=== PATIENT | female | born 1985 | race Caucasian/White ===

== ENCOUNTER 2019-11-18 10:09 | Inpatient (IN) | payer OTHER ==
[~2019-11-18] VITALS: Ht 162.6 cm; Wt 86.4 kg
[2019-11-18] VITALS (17 sets, daily range): BP systolic 99–135; BP diastolic 71–88
[2019-11-18 10:41] LABS: BASOPHILS % (AUTO) 0.1 % (0-1); EOSINOPHILS % (AUTO) 0.1 % (0-6); HEMATOCRIT 42.4 % (35.0-45.0); HEMOGLOBIN 14.3 g/dl (12.0-16.0); LYMPHOCYTES # (AUTO) 1.5 X10'3 (1.1-4.8); LYMPHOCYTES % (AUTO) 5.6 % (21-51); MEAN CORPUSCULAR HEMOGLOBIN 30.2 PG (27.0-31.0); MEAN CORPUSCULAR HGB CONC 33.6 g/dL (33.0-36.5); MEAN CORPUSCULAR VOLUME 89.8 FL (78-98); MONOCYTES # (AUTO) 2.1 X10'3 (0-0.9); MONOCYTES % (AUTO) 7.6 % (2-12); NEUTROPHILS # (AUTO) 23.9 X10'3 (1.8-7.7); NEUTROPHILS % (AUTO) 86.6 % (42-75); PLATELET COUNT 433 X10'3 (140-440); RED BLOOD COUNT 4.72 X10'6 (4.20-5.60); RED CELL DISTRIBUTION WIDTH 12.1 % (11.5-14.5)
[2019-11-18 10:44] LABS: WHITE BLOOD COUNT 27.6 X10'3 (4.5-11.0)
[2019-11-18 10:53] LABS: CLARITY,URINE CLEAR (Clear); COLOR,URINE STRAW (Yellow); GLUCOSE, URINE NEGATIVE (Neg); KETONES,URINE NEGATIVE (Neg); LEUKOCYTE ESTERASE ,URINE NEGATIVE (Neg); NITRITES, URINE NEGATIVE (Neg); OCCULT BLOOD,URINE TRACE-INTACT (Neg); PH,URINE 6.5 (4.8-8.0); PROTEIN,URINE NEGATIVE (Neg); UROBILINOGEN,URINE 0.2 E.U/dL (0.2-1.0)
[2019-11-18 10:54] LABS: URINE HCG NEGATIVE (NEG)
[2019-11-18 10:57] LABS: ALANINE AMINOTRANSFERASE 35 U/L (12-78); ALBUMIN 4.5 G/DL (3.4-5.0); ALKALINE PHOSPHATASE 48 IU/L (46-116); ANION GAP 11 (8-16); ASPARTATE AMINO TRANSFERASE 14 U/L (10-37); BILIRUBIN,TOTAL 0.6 MG/DL (0.1-1.0); BLOOD UREA NITROGEN 6 MG/DL (7-18); BUN/CREATININE RATIO 7.7 (6.6-38.0); CALCIUM 9.6 MG/DL (8.5-10.1); CHLORIDE 101 MMOL/L (99-107); CREATININE 0.78 MG/DL (0.40-0.90); GLUCOSE 116 MG/DL (70-104); LIPASE 150 U/L (73-393); POTASSIUM 3.4 MMOL/L (3.5-5.1); SODIUM 139 MMOL/L (135-145); TOTAL CARBON DIOXIDE 27.2 MMOL/L (24-32); TOTAL PROTEIN 8.8 G/DL (6.4-8.2); eGFR 85 ML/MIN
[2019-11-18 11:02] LABS: UA COLLECTION TYPE CLN CATCH MIDSTREAM
[2019-11-18 11:03] LABS: BACTERIA,URINE FEW /HPF (Neg); RBC,URINE 0-2 /HPF (0-2); SQUAMOUS EPITHELIAL CELL,UR FEW /LPF (FEW); WBC,URINE 0-4 /HPF (0-4)
[2019-11-18] MEDS ORDERED: normal saline 1000ML IV soln IV ONE (11:10)
[2019-11-18] MEDS ORDERED: CefTRIAXone/D5W-Rocephin 1gm 50 ML IV ONE ×2 (11:10→11:40)
[2019-11-18] MEDS ORDERED: metroNIDAZOLE-Flagyl 500mg/NS 100 ML IV ONE (11:10)
[2019-11-18 11:13] LABS: TOTAL CELLS COUNTED 100
[2019-11-18 11:14] LABS: PLATELET ESTIMATE NORMAL; TOXIC VACUOLATION 1+
[2019-11-18] MEDS ORDERED: iohexol 300mg/ml 100ml inj. ONE (11:16)
[2019-11-18] MEDS ORDERED: CefTRIAXone inj 1,000 MG in normal saline 100ml IV soln 100 ML IV ONE (11:20)
[2019-11-18] MEDS ORDERED: potassium Cl 20 mEq SR tablet PO PRN (13:05)
[2019-11-18] MEDS ORDERED: bisacodyl 10mg suppository rectal RC PRN (13:05)
[2019-11-18] MEDS ORDERED: morphine 2 MG/ML inj. syringe IV PRN ×3 (13:05→14:55)
[2019-11-18] MEDS ORDERED: ondansetron/PF 4mg/2ml inj IV PRN ×2 (13:05→14:55)
[2019-11-18] MEDS ORDERED: magnesium 4gm in 100ml NS 100 ML IV PRN (13:05)
[2019-11-18] MEDS ORDERED: mag hydrox/Alum hydrox/simeth 30ml oral suspension PO PRN (13:05)
[2019-11-18] MEDS ORDERED: potassium CL 10mEq/100ml bag 100 ML IV PRN ×2 (13:05)
[2019-11-18] MEDS ORDERED: magnesium hydroxide 30ml (MOM) UD suspension PO PRN (13:05)
[2019-11-18] MEDS ORDERED: magnesium 2GM in 50ml NS 50 ML IV PRN (13:05)
[2019-11-18] MEDS ORDERED: acetaminophen 650mg rectal suppository RC PRN (13:05)
[2019-11-18] MEDS ORDERED: diphenhydrAMINE 25mg capsule PO PRN (13:05)
[2019-11-18] MEDS ORDERED: acetaminophen 325mg tablet PO PRN ×2 (13:05)
[2019-11-18] MEDS ORDERED: HYDROcodone/acetaminophen 5mg/325mg tablet PO PRN (13:05)
[2019-11-18] MEDS ORDERED: metoclopramide 5 mg/ml inj IV PRN (13:05)
[2019-11-18] MEDS ORDERED: magnesium Cl slow-release 64mg tablet PO PRN (13:05)
[2019-11-18] MEDS ORDERED: NO HOME MEDS (13:23)
[2019-11-18 13:37] LABS: HEMOGLOBIN A1C 5.7 % (4.5-6.2)
[2019-11-18] MEDS ORDERED: famotidine/PF 10 mg/ml inj IV ONE (14:00)
[2019-11-18] MEDS ORDERED: BUPIVAcaine/PF 2.5 mg/ml (0.25%) 30ml vial ONE (14:09)
[2019-11-18] MEDS ORDERED: sevoflurane 250ml liquid IH ONE (14:24)
[2019-11-18] MEDS ORDERED: acetaminophen 1000 MG/100ml vial IV ONE (14:24)
[2019-11-18] MEDS ORDERED: rocuronium 10mg/ml inj IV ONE (14:27)
[2019-11-18] MEDS ORDERED: midazolam 2 mg/2 ml injection ONE (14:27)
[2019-11-18] MEDS ORDERED: fentaNYL/PF 50MCG/1 ML 2ML syringe ONE (14:27)
[2019-11-18] MEDS ORDERED: propofol inj 20 ML IV ONE (14:27)
[2019-11-18] MEDS ORDERED: ondansetron/PF 4mg/2ml inj ONE (14:38)
[2019-11-18] MEDS ORDERED: dexamethasone sod phosphate 4mg/ml inj. ONE (14:38)
[2019-11-18] MEDS ORDERED: ringers solution, lacted 1,000 ML IV SCH (14:51)
[2019-11-18] MEDS ORDERED: morphine 4 MG/ML inj SYRINge IV PRN (14:55)
[2019-11-18] MEDS ORDERED: proCHLORperazine 10 MG/2 ml inj IV PRN (14:55)
[2019-11-18] MEDS ORDERED: meperidine/PF 25mg/ml syringe IV PRN ×3 (14:55)
[2019-11-18] MEDS ORDERED: neostigmine methylsulfate 1 MG/ML 10ml vial ONE (15:14)
[2019-11-18] MEDS ORDERED: glycopyrrolate 0.2mg/ml inj ONE (15:14)
--- NOTE | 2019-11-18 15:34 | NUR ---
Received from OR via BED, accompanied by Anesthesiologist DR Gerard and report given by Anesthesiolgist. PATIENT WAKING UP, DENIES PAIN, V/S WNL and MASK To 10L 20G PIV R AC, SCD ON, 3 Will monitor.BANDAIDS TO LAP SIGHTS OF ABDOMEN CDI.
--- NOTE | 2019-11-18 15:36 | NUR ---
RECEIVED FROM OR VIA BED ACCOMPANIED BY ANESTHESIOLOGIST DR BUTTERFIELD, REPORT GIVEN. PT DROWSY BUT AROUSES EASILY AND DENIES PAIN AT THIS TIME. 20 GAUGE PIV L FA PATENT AND RUNNING LR AT 100 ML /HR. LG BANDAID DRESSING X4 TO ABD CDI, ABD SOFT, VSS, SKIN PINK AND WARM, GOOD CAP REFILL, PPULSES PRESENT, SCDS ON, RESTING COMFORTABLY.
--- NOTE | 2019-11-18 16:01 | NUR ---
PLEASE DISREGARD ALL CHARTING BY MYSELF ON THIS PT, NOT MY PT.
--- NOTE | 2019-11-18 16:36 | NUR ---
RECEIVED REPORT FROM ELIZABETH BLAND. AWAITING PATIENT ARRIVAL.
--- NOTE | 2019-11-18 16:42 | NUR ---
PAGER ID: [phone] MESSAGE: LATRICE, A PATIENT IS ON HER WAY TO FLOOR. JUST SPOKE WITH RUTH ANN WHO SAID SHE CAN GO HOME... [id number]
--- NOTE | 2019-11-18 16:44 | NUR ---
Report called to receiving nurse. Transferred via surgical bed. Belongings sent with patient. Special Issues communicated to receiving nurse. Chart sent with patient, BLL call light within reach. Pt feels as though emesis has passed, she is alert and oriented but sleepy.
--- NOTE | 2019-11-18 16:45 | NUR ---
PATIENT ARRIVED TO FLOOR. VSS. 3 LAP SITES WITH BANDAIDS CDI. MILD PAIN. RESTING COMFORTABLY.
[2019-11-18] MEDS: levoFLOXACIN-Levaquin 750MG/D5 150 ML IV SCH (17:03)
[2019-11-18] MEDS: normal saline 1000ml 1,000 ML IV SCH ×2 (17:03→17:11)
[2019-11-18] MEDS: metroNIDAZOLE-Flagyl 500mg/NS 100 ML IV SCH ×2 (17:11→23:14)
--- NOTE | 2019-11-18 18:04 | NUR ---
Problems reprioritized. Patient report given, questions answered & plan of care reviewed with ELIZABETH SOLARES.
--- NOTE | 2019-11-18 18:05 | NUR ---
Patient in room [facility]. I have received report from ELIZABETH Kirkpatrick and had the opportunity to ask questions and assume patient care.
[2019-11-18] MEDS: K and/or MAG REPLACEMENT MC SCH (19:42)
[2019-11-18] MEDS: HYDROcodone/acetaminophen 10/325mg tab PO PRN (19:50)
[2019-11-18] MEDS: potassium Cl 20 mEq SR tablet PO PRN (19:50)
[2019-11-18] MEDS: heparin, porcine 5000 units/ml vial SQ SCH (19:50)
[2019-11-18] MEDS ORDERED: benzocaine/menthol oral lozeng 1 EACH BOX MM PRN (23:00)
[2019-11-19] VITALS: BP 101/63
[2019-11-19] MEDS: potassium Cl 20 mEq SR tablet PO PRN (03:30)
[2019-11-19] MEDS: normal saline 1000ml 1,000 ML IV SCH (03:32)
[2019-11-19 04:47] VITALS: BP 115/59
[2019-11-19 06:11] LABS: BASOPHILS % (AUTO) 0.1 % (0-1); EOSINOPHILS % (AUTO) 0 % (0-6); HEMATOCRIT 35.5 % (35.0-45.0); HEMOGLOBIN 11.8 g/dl (12.0-16.0); LYMPHOCYTES # (AUTO) 0.9 X10'3 (1.1-4.8); LYMPHOCYTES % (AUTO) 5.6 % (21-51); MEAN CORPUSCULAR HEMOGLOBIN 29.9 PG (27.0-31.0); MEAN CORPUSCULAR HGB CONC 33.3 g/dL (33.0-36.5); MEAN CORPUSCULAR VOLUME 89.9 FL (78-98); MEAN PLATELET VOLUME 9.6 FL (7.4-10.4); MONOCYTES # (AUTO) 0.9 X10'3 (0-0.9); MONOCYTES % (AUTO) 5.4 % (2-12); NEUTROPHILS # (AUTO) 14.9 X10'3 (1.8-7.7); NEUTROPHILS % (AUTO) 88.9 % (42-75); PLATELET COUNT 347 X10'3 (140-440); RED BLOOD COUNT 3.95 X10'6 (4.20-5.60); RED CELL DISTRIBUTION WIDTH 12.3 % (11.5-14.5); WHITE BLOOD COUNT 16.8 X10'3 (4.5-11.0)
[2019-11-19 06:29] LABS: ALANINE AMINOTRANSFERASE 22 U/L (12-78); ALBUMIN 3.4 G/DL (3.4-5.0); ALBUMIN/GLOBULIN RATIO 0.9 (1.1-1.5); ALKALINE PHOSPHATASE 40 IU/L (46-116); ANION GAP 9 (8-16); ASPARTATE AMINO TRANSFERASE 10 U/L (10-37); BILIRUBIN,TOTAL 0.3 MG/DL (0.1-1.0); BLOOD UREA NITROGEN 5 MG/DL (7-18); BUN/CREATININE RATIO 6.9 (6.6-38.0); CALCIUM 8.6 MG/DL (8.5-10.1); CHLORIDE 107 MMOL/L (99-107); CREATININE 0.72 MG/DL (0.40-0.90); GLUCOSE 123 MG/DL (70-104); MAGNESIUM 1.8 MG/DL (1.5-2.4); PHOSPHORUS 2.3 MG/DL (2.3-4.5); POTASSIUM 3.5 MMOL/L (3.5-5.1); SODIUM 141 MMOL/L (135-145); TOTAL CARBON DIOXIDE 25.3 MMOL/L (24-32); TOTAL PROTEIN 7.1 G/DL (6.4-8.2); eGFR > 90 ML/MIN
--- NOTE | 2019-11-19 06:50 | NUR ---
Problems reprioritized. Patient report given, questions answered & plan of care reviewed with ELIZABETH Del Valle.
[2019-11-19 07:00] VITALS: BP 113/68
--- NOTE | 2019-11-19 07:12 | NUR ---
Patient in room [facility]. I have received report from Rosa JOHNSON and had the opportunity to ask questions and assume patient care.
[2019-11-19] MEDS: metroNIDAZOLE-Flagyl 500mg/NS 100 ML IV SCH (07:38)
[2019-11-19] MEDS: heparin, porcine 5000 units/ml vial SQ SCH (07:39)
[2019-11-19] MEDS: K and/or MAG REPLACEMENT MC SCH (08:00)
[2019-11-19] MEDS: levoFLOXACIN-Levaquin 750MG/D5 150 ML IV SCH (08:46)
[2019-11-19] MEDS: HYDROcodone/acetaminophen 10/325mg tab PO PRN (08:47)
--- NOTE | 2019-11-19 10:36 | NUR ---
Dr. Austin paged notifying him about Dr. Grey discharging this patient
[2019-11-19 12:06] VITALS: BP 118/72
--- NOTE | 2019-11-19 13:55 | NUR ---
Discharged patient home, discharge instructions given to patient. Patient verbalized understanding of all instructions made. Peripheral IV catheter removed, tip intact. Instructed patient to ensure she has all her belongings with her before leaving the hospital. Patient stated she received her valuable from safe already. Patient instructed to follow up with a doctor in [place] where she live and have her incision checked.
== END 2019-11-19 13:55 | disposition home or self-care (01) | DRG 343 ==
LOC: ER 10:09 → ED HOLD 13:03 → SUR 3N 16:57
PROVIDERS: ADMIT Family Medicine; ATTEND Family Medicine
PROC: 0DTJ4ZZ Resection of Appendix, Percutaneous Endoscopic Approach (ICD-10-PCS; principal; 2019-11-18 14:24)
DX: K35.80 Unspecified acute appendicitis (principal); E87.6 Hypokalemia; D72.829 Elevated white blood cell count, unspecified
CPT/HCPCS: 96365; 99285; Z7506; Z7508; 36415; 71045; 74177; 80053; 81001; 81025; 82948; 83036; 83605; 83690; 83735; 84100; 84145; 85025; 86885; 86900; 86901; 87040; 87081; A4215; A4618; A7000; G0378; J0131; J0696; J1100; J1644; J1956; J2175; J2250; J2405; J2704; J2710; J3010; J3490; J7030; Q9967